=== PATIENT | female | born 1975 | race Caucasian/White ===

== ENCOUNTER 2016-08-20 16:04 | Emergency (ER) | payer OTHER ==
[~2016-08-20] VITALS: Ht 170.2 cm; Wt 4.5 kg
[2016-08-20] MEDS ORDERED: PHENAZOPYRIDINE HCL 100 MG TABLET PO ONE (16:45)
[2016-08-20] MEDS ORDERED: CIPROFLOXACIN HCL 250 MG TABLET PO ONE (16:45)
[2016-08-20] MEDS ORDERED: PHENAZOPYRIDINE HCL 100 MG TABLET ONE (16:57)
[2016-08-20] MEDS ORDERED: CIPROFLOXACIN HCL 250 MG TABLET ONE (16:57)
--- NOTE | 2016-08-20 17:33 | NUR ---
Patient discharged to home in stable conditon. Written and verbal after care instructions given to patient. Patient verbalizes understanding of instructions.
[2016-08-20 17:41] LABS: *URINE HCG, QUAL NEGATIVE (NEGATIVE)
[2016-08-20] MEDS ORDERED: OXYCODONE/APAP 5-325 MG TABLET ONE (17:44)
[2016-08-20] MEDS ORDERED: OXYCODONE/APAP 5-325 MG TABLET PO ONE (17:45)
[2016-08-20 17:49] LABS: *BILIRUBIN,URIN NEGATIVE (NEGATIVE); *BLOOD, URINE 3+ (NEGATIVE); *CLARITY,URINE CLOUDY (CLEAR); *COLOR,URINE YELLOW (YELLOW); *KETONES,URINE NEGATIVE (NEGATIVE); *PROTEIN,URINE 2+ (NEGATIVE); *UROBILINOGEN,URINE 0.2 E.U./dl (NORMAL); LEUKOCYTE ESTERASE ,URINE 1+ (NEGATIVE); NITRITE, URINE NEGATIVE (NEGATIVE); UGLUCOSE NEGATIVE (NEGATIVE)
[2016-08-20 17:52] LABS: WBC,URINE 20-50 /HPF (0-3)
[2016-08-20 17:53] LABS: BACTERIA,URINE FEW /HPF (NONE SEEN)
[2016-08-20 17:54] LABS: RBC,URINE 80-100 /HPF (0-3)
[2016-08-20 17:56] LABS: CALCIUM OXALATE CRYSTALS,UR RARE /HPF (NONE SEEN)
[2016-08-20 17:58] LABS: SQUAMOUS EPITHELIAL CELL,UR MODERATE /HPF (NONE SEEN)
== END 2016-08-20 17:36 | disposition home or self-care (01) ==
LOC: ER 16:07
DX: N13.30 Unspecified hydronephrosis (principal)
CPT/HCPCS: 76770; 76856; 84703; 87086; A4663